=== PATIENT | male | born 1985 | race Caucasian/White ===

== ENCOUNTER 2020-03-28 21:19 | Inpatient (IN) | payer MEDICAID ==
[~2020-03-28] VITALS: Ht 182.9 cm; Wt 57.6 kg
[~2020-03-28 21:19] MED LIST: INSU100V15 SQ; INSU100V36; INSU100V36 SQ; LANTUS SUBCUT; ONDA-103 PO
[2020-03-28] MEDS ORDERED: diphenhydrAMINE 25mg capsule PO PRN (21:35)
[2020-03-28] MEDS ORDERED: mag hydrox/Alum hydrox/simeth 30ml oral suspension PO PRN (21:35)
[2020-03-28] MEDS ORDERED: ondansetron/PF 4mg/2ml inj IV PRN (21:35)
[2020-03-28] MEDS ORDERED: bisacodyl 10mg suppository rectal RC PRN (21:35)
[2020-03-28] MEDS ORDERED: glucagon, human recombinant 1mg kit SUBCUT PRN (21:35)
[2020-03-28] MEDS ORDERED: acetaminophen 325mg tablet PO PRN (21:35)
[2020-03-28] MEDS ORDERED: dextrose ORAL solution 15 GM/59 ML bottle PO PRN ×2 (21:35)
[2020-03-28] MEDS ORDERED: dextrose 50%-water 50ml dispensing syringe IV PRN ×2 (21:35)
[2020-03-29 00:55] VITALS: BP 155/112
--- NOTE | 2020-03-29 00:55 | NUR ---
Patient arrived to PCU at 0055 via gurney from [facility]. After receiving report from EMS, patient immediately became noncompliant stating that he needs to smoke a cigarette. Patient left to go outside after being informed that the facility is non-smoking and that security will be called. Security was notified and patient returned to room 5 minutes after event. Firmly restated facility's strict non-smoking policy. Able to obtain patient's vital signs: BP 155/112, HR 78, SpO2 95% on room air, respiratory rate 14, and T 97.5. EUSEBIA Finleyver aware of elevated blood pressure medication and administered Clonidine. Patient alert and oriented x4. EUSEBIA Boudreaux visited patient at bedside immediately. Patient became agitated about handing over marijuana that was kept on patient, security was called and marijuana was removed from patient. Patient refused telemetry monitoring and skin check. Informed patient about necessity to be NPO for TDC procedure in AM but became increasingly agitated. Provided apple juice & small cup of ice water with approval from EUSEBIA Boudreaux and to begin NPO right after.
[2020-03-29] MEDS ORDERED: cloNIDine 0.1 mg tablet PO ONE (01:30)
[2020-03-29] MEDS ORDERED: traZODone 50mg tablet PO ONE (01:30)
[2020-03-29] MEDS: lurasidone 60mg tablet PO SCH ×3 (01:30→20:52)
[2020-03-29] MEDS ORDERED: gabapentin 300mg capsule PO ONE (01:30)
[2020-03-29] MEDS ORDERED: nicotine 21mg patch - 24 hr TD ONE (02:15)
[2020-03-29] MEDS ORDERED: SYN0.088T PO (02:28)
[2020-03-29] MEDS ORDERED: FERR-39 PO (02:35)
[2020-03-29] MEDS ORDERED: LORazepam 2 mg/ml vial IV PRN (02:55)
[2020-03-29] MEDS ORDERED: ACET-1008 PO ×2 (03:03)
[2020-03-29] MEDS ORDERED: CLON-513 PO (03:03)
[2020-03-29] MEDS ORDERED: TRAZ-256 PO (03:03)
[2020-03-29] MEDS ORDERED: ELBA1TAB PO (03:03)
[2020-03-29] MEDS ORDERED: PROM25TA14 PO (03:03)
[2020-03-29] MEDS ORDERED: DULO60CA65 PO (03:03)
[2020-03-29] MEDS ORDERED: FURO-149 PO (03:03)
[2020-03-29] MEDS ORDERED: ENTE0.5T4 PO (03:03)
[2020-03-29] MEDS ORDERED: LURA60TA2 PO (03:03)
[2020-03-29] MEDS ORDERED: ONDA4TAB6 PO (03:03)
[2020-03-29] MEDS ORDERED: NIFE30TA95 PO (03:03)
[2020-03-29] MEDS ORDERED: INSU100V9 SQ (03:03)
[2020-03-29] MEDS ORDERED: FLO0.4C PO (03:03)
--- NOTE | 2020-03-29 03:14 | NUR ---
Patient arrived to the PCU floor at 0055 from [facility]. He was transported via EMS. He is alert and oriented. He is able to make his needs known. He is very non-compliant with care. Before he was even placed on tele or allowed vitals to be taken he said he was going to go outside to smoke. He was informed that this is a non-smoking facility and also he cannot leave this floor with his current condition because he needs to be monitored and he was offered for us to get a Nicotene patch ordered for him. He said he does not care or want that and he is going. Security called at this time however he walked past all staff members and went to smoke anyway and then came right back up. He was told that if he leaves again he will not be allowed back in unless he gets readmitted. July made aware and came up to see the patient and also educated him on this. Patient very agitated saying that this is all bullshit. He was informed that he is NPO for his TDC placement in the morning and says that he does not agree with this and thinks we just do not want to feed him. He was provided a little bit of ice chips per ok from July. He still is refusing to wear tele. Provider July is aware of this and the teletype or varitype keyboard operator is aware. He finally agreed to take the Nicotene patch so this was ordered and placed on patient. He refused for us to perform a skin check but denies having any skin issues. Patient was noted to have a large pill bottle hanging out of his pant pocket and was informed that all personal medications must be stored in the pharmacy. He said that it is not medications and it is marijuana and he was informed that this also is not allowed at the hospital. He refused to hand it over and so security was called again and eventually the patient decided to give it to security. Attempted to DART patient and obtain his health history but he is unwilling to speak to us at this time. All safety precautions in place. Will continue to monitor for changes.
[2020-03-29] MEDS ORDERED: NA P133E4 RC (03:24)
[2020-03-29] MEDS ORDERED: FAMO40TA73 PO (03:24)
[2020-03-29] MEDS ORDERED: BISA10SU60 RC (03:24)
[2020-03-29] MEDS ORDERED: CLON0.3T PO (03:24)
[2020-03-29] MEDS ORDERED: CLON0.1T PO (03:24)
[2020-03-29] MEDS ORDERED: PHO667C PO (03:24)
[2020-03-29] MEDS ORDERED: CARV25TA PO (03:24)
[2020-03-29] MEDS ORDERED: POLY119P2 PO (03:24)
[2020-03-29] MEDS ORDERED: METH5TAB2 PO (03:24)
[2020-03-29] MEDS ORDERED: METO-292 PO (03:24)
[2020-03-29] MEDS ORDERED: MAGN400O6 PO (03:24)
[2020-03-29] MEDS ORDERED: PROM12.512 RC (03:24)
[2020-03-29] MEDS ORDERED: CLON0.5T23 PO (03:24)
[2020-03-29] MEDS ORDERED: DOCU-148 PO (03:24)
[2020-03-29] MEDS ORDERED: SUCR1TAB34 PO (03:24)
[2020-03-29] MEDS ORDERED: DOCU250C96 PO (03:24)
[2020-03-29] MEDS ORDERED: GABA-530 PO (03:24)
[2020-03-29] MEDS ORDERED: magnesium hydroxide 30ml (MOM) UD suspension PO PRN (03:50)
[2020-03-29] MEDS ORDERED: non-formulary drug (Ondansetron Hcl (Zofran) 1 TAB) PO PRN (03:50)
[2020-03-29] MEDS ORDERED: ENTECAVIR PO SCH (03:50)
[2020-03-29] MEDS ORDERED: proMETHazine 25mg rectal suppository RC PRN (03:50)
[2020-03-29] MEDS ORDERED: clonazePAM 1mg tablet PO PRN ×2 (03:50)
[2020-03-29] MEDS ORDERED: non-formulary drug (Na Phos,M-B/Na Phos,Di-Ba* (Fleet's Enema*) 1 BOTTLE) RC PRN (03:50)
[2020-03-29] MEDS ORDERED: cloNIDine 0.1 mg tablet PO PRN (03:50)
[2020-03-29] MEDS ORDERED: polyethylene glycol 3350 17gm powd pack PO PRN (03:50)
[2020-03-29] MEDS ORDERED: bisacodyl 10mg suppository rectal RC PRN (03:50)
[2020-03-29] MEDS ORDERED: docusate sod 100mg capsule PO PRN (03:50)
[2020-03-29 05:33] LABS: PLATELET COUNT 200 X10'3 (140-440); RED CELL DISTRIBUTION WIDTH 17.6 % (11.5-14.5)
[2020-03-29 05:34] LABS: BASOPHILS # (AUTO) 0.1 X10'3 (0-0.2); BASOPHILS % (AUTO) 1.9 % (0-1); EOSINOPHILS # (AUTO) 0.3 X10'3 (0-0.9); EOSINOPHILS % (AUTO) 3.7 % (0-6); HEMATOCRIT 36.7 % (42.0-52.0); LYMPHOCYTES # (AUTO) 2.9 X10'3 (1.1-4.8); LYMPHOCYTES % (AUTO) 37.9 % (21-51); MEAN CORPUSCULAR HEMOGLOBIN 30.3 PG (27.0-31.0); MEAN CORPUSCULAR HGB CONC 32.7 g/dL (33.0-36.5); MEAN CORPUSCULAR VOLUME 92.5 FL (78-98); MEAN PLATELET VOLUME 7.9 FL (7.4-10.4); MONOCYTES # (AUTO) 0.7 X10'3 (0-0.9); MONOCYTES % (AUTO) 9.3 % (2-12); NEUTROPHILS # (AUTO) 3.6 X10'3 (1.8-7.7); NEUTROPHILS % (AUTO) 47.2 % (42-75); RED BLOOD COUNT 3.97 X10'6 (4.70-6.10); WHITE BLOOD COUNT 7.7 X10'3 (4.5-11.0)
[2020-03-29 05:46] LABS: ALANINE AMINOTRANSFERASE 15 U/L (12-78); ALBUMIN 2.9 G/DL (3.4-5.0); ALBUMIN/GLOBULIN RATIO 0.9 (1.1-1.5); ALKALINE PHOSPHATASE 50 IU/L (46-116); ANION GAP 4 (8-16); ASPARTATE AMINO TRANSFERASE 13 U/L (10-37); BILIRUBIN,TOTAL 0.3 MG/DL (0.1-1.0); BLOOD UREA NITROGEN 58 MG/DL (7-18); BUN/CREATININE RATIO 10.3 (5.4-32.0); CALCIUM 7.9 MG/DL (8.5-10.1); CHLORIDE 105 MMOL/L (99-107); CREATININE 5.62 MG/DL (0.60-1.10); GLUCOSE 229 MG/DL (70-104); MAGNESIUM 2.8 MG/DL (1.5-2.4); PHOSPHORUS 3.9 MG/DL (2.3-4.5); SODIUM 141 MMOL/L (135-145); TOTAL CARBON DIOXIDE 32.2 MMOL/L (24-32); eGFR 12 ML/MIN
--- NOTE | 2020-03-29 06:18 | NUR ---
Orientee documentation: I have reviewed and agree with all interventions, assessments performed and documented by Wayne ETIENNE.
--- NOTE | 2020-03-29 06:18 | NUR ---
Orientee Medication Administration: For this medication-pass time frame, all medication were reviewed, dispensed, administered and documented per hospital policy by Wayne ETIENNE.
--- NOTE | 2020-03-29 06:22 | NUR ---
Problems reprioritized. Patient report given, questions answered & plan of care reviewed with Stephanie ETIENNE.
--- NOTE | 2020-03-29 06:25 | NUR ---
Patient in room PCU 3023. I have received report from Ericka ETIENNE and Wayne ETIENNE and had the opportunity to ask questions and assume patient care.
[2020-03-29] MEDS ORDERED: MESSAGE TO PHARMACY PO ONE (06:40)
[2020-03-29 06:56] LABS: TOTAL CELLS COUNTED 100
[2020-03-29 06:57] LABS: ANISOCYTOSIS 1+; PLATELET ESTIMATE NORMAL
[2020-03-29] MEDS: metoclopramide 10mg tablet PO SCH ×4 (07:38→20:52)
[2020-03-29] MEDS: famotidine 10mg tablet PO SCH ×2 (07:38→19:14)
[2020-03-29] MEDS: carVEDilol 12.5mg tablet PO SCH ×2 (07:38→19:11)
[2020-03-29] MEDS: cloNIDine 0.1 mg tablet PO SCH ×3 (07:38→20:53)
[2020-03-29] MEDS: docusate sod 250mg capsule PO SCH ×2 (07:38→19:13)
[2020-03-29] MEDS: duloxetine 30mg CAPSULE.DR PO SCH (07:39)
[2020-03-29] MEDS: methadone 5mg tablet PO SCH ×3 (07:39→20:53)
[2020-03-29] MEDS: sucralfate 1 gm tablet PO SCH ×4 (07:39→20:52)
[2020-03-29] MEDS: ferrous sulfate 325mg tablet PO SCH (07:39)
[2020-03-29] MEDS: calcium acetate 667mg (PhosLO) capsule PO SCH ×3 (07:40→18:38)
[2020-03-29] MEDS: levoTHYROXINE 25mcg tablet PO SCH (07:40)
[2020-03-29] MEDS: gabapentin 300mg capsule PO SCH ×3 (07:40→20:52)
[2020-03-29] MEDS: furosemide 40mg tablet PO SCH (07:40)
[2020-03-29] MEDS: NIFEdipine XL 30mg tablet PO SCH (07:44)
[2020-03-29] MEDS ORDERED: heparin 1,000unit/ml 10ml vial 10 ML IV ONE (07:48)
[2020-03-29] MEDS ORDERED: heparin 1,000 units/ml 10ml inj IV ONE (07:50)
[2020-03-29] MEDS ORDERED: albumin (human) 25% 100ml IV 100 ML IV PRN (07:50)
[2020-03-29] MEDS ORDERED: heparin 1,000 units/ml 10ml inj HE ONE ×2 (07:55)
[2020-03-29] MEDS ORDERED: docusate sod 100mg capsule PO SCH (08:00)
[2020-03-29] MEDS ORDERED: proMETHazine 25mg tablet PO PRN (08:00)
[2020-03-29] MEDS ORDERED: ondansetron 4mg rapidly disintigrating tab PO PRN (08:00)
--- NOTE | 2020-03-29 09:23 | NUR ---
Patient is currently refusing much of his care. He refused vital signs, refused blood glucose check, and is upset he must be NPO. He did accept his medications. Noncompliant care plan in place. Will continue to monitor.
[2020-03-29] MEDS ORDERED: heparin 1,000unit/ml 10ml vial 10 ML ONE (10:38)
[2020-03-29] MEDS ORDERED: fentaNYL/PF 50MCG/1 ML 2ML syringe ONE (10:39)
[2020-03-29] MEDS ORDERED: midazolam 2 mg/2 ml injection ONE (10:39)
[2020-03-29] MEDS ORDERED: LIDOcaine 1%/PF 5ML 10 MG/ML VIAL ONE (10:39)
[2020-03-29] MEDS: insulin Lispro (HumaLOG) vial - multi-dose SQ SCH (13:33)
--- NOTE | 2020-03-29 16:38 | NUR ---
DM consult, patient has a1c of 8%, h/o ESRD receiving HD. Met patient at bedside during dialysis. Pt declined to answer questions re: appetite, chewing/swallowing difficulties, GI, and questions regarding DM. Gave written DM education handout and left on bedside table; discussed above with bedside RN. Addendum: 03/29/20 at [address] Amended: Links added.
[2020-03-29 18:00] VITALS: BP 185/119
--- NOTE | 2020-03-29 18:05 | NUR ---
Patient in room PCU 3023. I have received report from Stephanie ETIENNE and had the opportunity to ask questions and assume patient care.
--- NOTE | 2020-03-29 18:11 | NUR ---
Problems reprioritized. Patient report given, questions answered & plan of care reviewed with Ericka ETIENNE and Wayne ETIENNE.
--- NOTE | 2020-03-29 18:25 | NUR ---
Patient in room PCU 3023. I have received report from Nas ETIENNE and had the opportunity to ask questions and assume patient care.
--- NOTE | 2020-03-29 18:30 | NUR ---
Patient did not receive dinner tray. Ordered late tray from kitchen. Waiting to cover with insulin until patient has eaten.
--- NOTE | 2020-03-29 19:14 | NUR ---
Informed July CORONER/MEDICAL EXAMINER that patient's blood pressure is 185/119 but that he will be getting his scheduled Coreg and Clonidine coming up and so will just continue to monitor after BP meds, no other additional orders at this time. Also got accu checks changed from Q6H to ACHS.
[2020-03-29] MEDS: heparin, porcine 5000 units/ml vial SQ SCH (20:00)
[2020-03-29] MEDS ORDERED: traZODone 50mg tablet PO SCH ×2 (20:00→21:00)
--- NOTE | 2020-03-29 20:00 | NUR ---
Patient just finished eating dinner but only ate a couple bites of the beef jerad and nothing else so he did not have any carbs so sicne it is almost bedtime will just recheck blood time blood sugar and cover according to that.
[2020-03-29] MEDS ORDERED: insulin glargine (Lantus) pen - multi-dose SQ SCH (21:00)
[2020-03-29] MEDS ORDERED: tamsulosin 0.4mg capsule PO SCH (21:00)
[2020-03-29] MEDS ORDERED: GRAZOPREVIR PO SCH (21:00)
[2020-03-29] MEDS ORDERED: lurasidone 60mg tablet PO SCH (21:00)
[2020-03-29] MEDS ORDERED: ELBASVIR PO SCH (21:00)
[2020-03-29 21:03] VITALS: BP 169/97
[2020-03-29 22:00] VITALS: BP 166/112
--- NOTE | 2020-03-30 02:00 | NUR ---
Patient refused 0200 vitals.
--- NOTE | 2020-03-30 04:26 | NUR ---
Orientee documentation: I have reviewed and agree with all interventions, assessments performed and documented by Wayne ETIENNE. [employer] Medication Administration: For this medication-pass time frame, all medication were reviewed, dispensed, administered and documented per hospital policy by Wayne ETIENNE.
[2020-03-30 05:45] LABS: BASOPHILS # (AUTO) 0.2 X10'3 (0-0.2); BASOPHILS % (AUTO) 1.8 % (0-1); EOSINOPHILS # (AUTO) 0.2 X10'3 (0-0.9); EOSINOPHILS % (AUTO) 2.3 % (0-6); HEMATOCRIT 40.9 % (42.0-52.0); HEMOGLOBIN 13.4 g/dl (14.0-17.9); LYMPHOCYTES # (AUTO) 2.9 X10'3 (1.1-4.8); LYMPHOCYTES % (AUTO) 27.7 % (21-51); MEAN CORPUSCULAR HEMOGLOBIN 30.2 PG (27.0-31.0); MEAN CORPUSCULAR HGB CONC 32.8 g/dL (33.0-36.5); MEAN CORPUSCULAR VOLUME 92.1 FL (78-98); MEAN PLATELET VOLUME 7.6 FL (7.4-10.4); MONOCYTES # (AUTO) 1.1 X10'3 (0-0.9); NEUTROPHILS # (AUTO) 6.1 X10'3 (1.8-7.7); NEUTROPHILS % (AUTO) 58.2 % (42-75); PLATELET COUNT 252 X10'3 (140-440); RED BLOOD COUNT 4.44 X10'6 (4.70-6.10); RED CELL DISTRIBUTION WIDTH 17.2 % (11.5-14.5); WHITE BLOOD COUNT 10.6 X10'3 (4.5-11.0)
[2020-03-30 06:04] LABS: ALANINE AMINOTRANSFERASE 26 U/L (12-78); ALBUMIN 3.2 G/DL (3.4-5.0); ALBUMIN/GLOBULIN RATIO 0.8 (1.1-1.5); ALKALINE PHOSPHATASE 65 IU/L (46-116); ANION GAP 10 (8-16); ASPARTATE AMINO TRANSFERASE 25 U/L (10-37); BILIRUBIN,TOTAL 0.5 MG/DL (0.1-1.0); BLOOD UREA NITROGEN 37 MG/DL (7-18); BUN/CREATININE RATIO 9.7 (5.4-32.0); CALCIUM 8.3 MG/DL (8.5-10.1); CHLORIDE 101 MMOL/L (99-107); CREATININE 3.81 MG/DL (0.60-1.10); GLUCOSE 156 MG/DL (70-104); MAGNESIUM 2.5 MG/DL (1.5-2.4); PHOSPHORUS 4.1 MG/DL (2.3-4.5); POTASSIUM 3.9 MMOL/L (3.5-5.1); SODIUM 140 MMOL/L (135-145); TOTAL CARBON DIOXIDE 28.9 MMOL/L (24-32); TOTAL PROTEIN 7.1 G/DL (6.4-8.2); eGFR 18 ML/MIN
--- NOTE | 2020-03-30 06:07 | NUR ---
Problems reprioritized. Patient report given, questions answered & plan of care reviewed with Stephanie ETIENNE.
--- NOTE | 2020-03-30 06:13 | NUR ---
Patient in room PCU 3023. I have received report from Ericka ETIENNE and Wayne ETIENNE and had the opportunity to ask questions and assume patient care.
[2020-03-30 07:00] VITALS: BP 188/111
[2020-03-30] MEDS: carVEDilol 12.5mg tablet PO SCH (07:57)
[2020-03-30] MEDS: levoTHYROXINE 25mcg tablet PO SCH (07:57)
[2020-03-30] MEDS: NIFEdipine XL 30mg tablet PO SCH (07:57)
[2020-03-30] MEDS: methadone 5mg tablet PO SCH ×2 (07:58→13:31)
[2020-03-30] MEDS: gabapentin 300mg capsule PO SCH ×2 (07:58→13:31)
[2020-03-30] MEDS: furosemide 40mg tablet PO SCH (08:00)
[2020-03-30] MEDS: metoclopramide 10mg tablet PO SCH ×2 (08:00→13:31)
[2020-03-30] MEDS: cloNIDine 0.1 mg tablet PO SCH ×2 (08:00→13:31)
[2020-03-30] MEDS: docusate sod 250mg capsule PO SCH (08:00)
[2020-03-30] MEDS: ferrous sulfate 325mg tablet PO SCH (08:00)
[2020-03-30] MEDS: heparin, porcine 5000 units/ml vial SQ SCH (08:00)
[2020-03-30] MEDS: famotidine 10mg tablet PO SCH (08:00)
[2020-03-30] MEDS: duloxetine 30mg CAPSULE.DR PO SCH (08:00)
[2020-03-30] MEDS: sucralfate 1 gm tablet PO SCH ×2 (08:00→13:32)
[2020-03-30] MEDS: calcium acetate 667mg (PhosLO) capsule PO SCH (08:00)
[2020-03-30 11:00] VITALS: BP 177/90
[2020-03-30] MEDS: insulin Lispro (HumaLOG) vial - multi-dose SQ SCH (13:30)
[2020-03-30] MEDS ORDERED: calcium acetate 667mg (PhosLO) capsule PO SCH (13:32)
--- NOTE | 2020-03-30 14:46 | NUR ---
Patient stable for discharge per MD order. All discharge information and education reviewed with patient before signing necessary paperwork. IV discontinued with catheter in tact, monitoring and evaluation advisor removed, patient belongings packed up and sent with patient. No new Rx. Patient left with transport service back to [place].
== END 2020-03-30 14:15 | DRG 206 ==
LOC: PCU 3S 21:33 → UNDOADMIN 03-29 00:56 → PCU 3S 03-29 00:56
PROVIDERS: ADMIT Internal Medicine Critical Care Medicine; ATTEND Internal Medicine Critical Care Medicine
PROC: 0JH63XZ Insertion of Tunneled Vascular Access Device into Chest Subcutaneous Tissue and Fascia, Percutaneous Approach (ICD-10-PCS; principal; 2020-03-29)
PROC: 02HV33Z Insertion of Infusion Device into Superior Vena Cava, Percutaneous Approach (ICD-10-PCS; 2020-03-29)
PROC: B548ZZA Ultrasonography of Superior Vena Cava, Guidance (ICD-10-PCS; 2020-03-29)
PROC: 5A1D70Z Performance of Urinary Filtration, Intermittent, Less than 6 Hours Per Day (ICD-10-PCS; 2020-03-29)
DX: T82.818A Embolism due to vascular prosthetic devices, implants and grafts, initial encounter (principal); E10.22 Type 1 diabetes mellitus with diabetic chronic kidney disease; F12.90 Cannabis use, unspecified, uncomplicated; F25.0 Schizoaffective disorder, bipolar type; G89.4 Chronic pain syndrome; I12.0 Hypertensive chronic kidney disease with stage 5 chronic kidney disease or end stage renal disease; B19.20 Unspecified viral hepatitis C without hepatic coma; N18.6 End stage renal disease; E10.649 Type 1 diabetes mellitus with hypoglycemia without coma; Y83.2 Surgical operation with anastomosis, bypass or graft as the cause of abnormal reaction of the patient, or of later complication, without mention of misadventure at the time of the procedure; Y92.89 Other specified places as the place of occurrence of the external cause; Z79.4 Long term (current) use of insulin; Z79.899 Other long term (current) drug therapy; Z87.11 Personal history of peptic ulcer disease; Z99.2 Dependence on renal dialysis
CPT/HCPCS: 36415; 36558; 71045; 76937; 77001; 80053; 82948; 83036; 83735; 84100; 84443; 85007; 85025; 87081; 99152; 99153; A9270; C1769; C1894; G0378; J1644; J1815; J2250; J3010; J8597

== ENCOUNTER 2020-08-28 16:29 | Emergency (ER) | payer MEDICAID ==
[~2020-08-28] VITALS: Ht 177.8 cm; Wt 63.0 kg
[~2020-08-28 16:29] MED LIST changes: +ACET-1008 PO; +BISA10SU60 RC; +CARV25TA PO; +CLON-513 PO; +CLON0.1T PO; +CLON0.3T PO; +CLON0.5T23 PO; +DOCU250C96 PO; +DULO60CA65 PO; +ELBA1TAB PO; +ENTE0.5T4 PO; +FAMO40TA73 PO; +FERR-39 PO; +FLO0.4C PO; +FURO-149 PO; +GABA-530 PO; -INSU100V36 SQ; +INSU100V9 SQ; -LANTUS SUBCUT; +LURA60TA PO; +MAGN400O6 PO; +METH5TAB2 PO; +METO-292 PO; +NA P133E4 RC; +NIFE30TA95 PO; +PHO667C PO; +POLY119P2 PO; +PROM12.512 RC; +SUCR1TAB34 PO; +SYN0.088T PO; +TRAZ-256 PO
[2020-08-28 17:00] LABS: BASOPHILS % (AUTO) 0.4 % (0-1); EOSINOPHILS % (AUTO) 0.6 % (0-6); HEMATOCRIT 31.3 % (42.0-52.0); HEMOGLOBIN 10.6 g/dl (14.0-17.9); LYMPHOCYTES # (AUTO) 1.4 X10'3 (1.1-4.8); LYMPHOCYTES % (AUTO) 20.2 % (21-51); MEAN CORPUSCULAR HEMOGLOBIN 30.9 PG (27.0-31.0); MEAN CORPUSCULAR HGB CONC 33.8 g/dL (33.0-36.5); MEAN CORPUSCULAR VOLUME 91.4 FL (78-98); MEAN PLATELET VOLUME 7.5 FL (7.4-10.4); MONOCYTES # (AUTO) 0.3 X10'3 (0-0.9); MONOCYTES % (AUTO) 4.3 % (2-12); NEUTROPHILS % (AUTO) 74.5 % (42-75); PLATELET COUNT 195 X10'3 (140-440); RED BLOOD COUNT 3.43 X10'6 (4.70-6.10); RED CELL DISTRIBUTION WIDTH 13.7 % (11.5-14.5); WHITE BLOOD COUNT 6.7 X10'3 (4.5-11.0)
[2020-08-28 17:15] LABS: ALANINE AMINOTRANSFERASE 13 U/L (12-78); ALBUMIN 3.1 G/DL (3.4-5.0); ALBUMIN/GLOBULIN RATIO 0.8 (1.1-1.5); ALKALINE PHOSPHATASE 64 IU/L (46-116); ANION GAP 13 (8-16); ASPARTATE AMINO TRANSFERASE 14 U/L (10-37); BILIRUBIN,TOTAL 0.5 MG/DL (0.1-1.0); BLOOD UREA NITROGEN 32 MG/DL (7-18); BUN/CREATININE RATIO 8.7 (5.4-32.0); CALCIUM 8.5 MG/DL (8.5-10.1); CHLORIDE 98 MMOL/L (99-107); CREATININE 3.66 MG/DL (0.60-1.10); GLUCOSE 215 MG/DL (70-104); LIPASE < 50 U/L (73-393); MAGNESIUM 1.9 MG/DL (1.5-2.4); POTASSIUM 3.8 MMOL/L (3.5-5.1); SODIUM 138 MMOL/L (135-145); TOTAL CARBON DIOXIDE 27.4 MMOL/L (24-32); eGFR 19 ML/MIN
--- NOTE | 2020-08-28 17:42 | NUR ---
per pa good, patient straight cathed
--- NOTE | 2020-08-28 17:43 | NUR ---
only a few mls of urine obtained.
--- NOTE | 2020-08-28 17:44 | NUR ---
PATIENT HAD HD TODAY
--- NOTE | 2020-08-28 17:45 | NUR ---
MYRTLE [place] MOTHER IN [place] [id number] [phone] PER MOTHER, BEENA JUST CAME HOME 2 DAYS AGO AND WAS LIVING AT [facility] PER MOM, PATIENT HAS NOT TAKEN ANY OF HIS MEDS TODAY DUE TO NAUSEA AND VOMITING
[2020-08-28 18:04] LABS: CLARITY,URINE CLEAR (Clear); COLOR,URINE YELLOW (Yellow); GLUCOSE, URINE 250 mg/dl (Neg); KETONES,URINE TRACE mg/dl (Neg); LEUKOCYTE ESTERASE ,URINE NEGATIVE (Neg); NITRITES, URINE NEGATIVE (Neg); OCCULT BLOOD,URINE SMALL (Neg); PH,URINE 7.5 (4.8-8.0); PROTEIN,URINE >=300 mg/dl (Neg); UROBILINOGEN,URINE 0.2 E.U/dL (0.2-1.0)
[2020-08-28 18:10] LABS: UA COLLECTION TYPE STRAIGHT CATH
[2020-08-28 18:11] LABS: BACTERIA,URINE NONE SEEN /HPF (Neg); HYALINE CASTS 0-3 /LPF (NEGATIVE); MUCUS STRANDS FEW /LPF (Neg); RBC,URINE 0-2 /HPF (0-2); SQUAMOUS EPITHELIAL CELL,UR FEW /LPF (FEW); WBC,URINE 0-4 /HPF (0-4)
[2020-08-28 18:13] LABS: URINE AMPHETAMINE SCREEN NEGATIVE (Neg); URINE BARBITUATE SCREEN NEGATIVE (Neg); URINE BENZODIAZEPINES SCREEN NEGATIVE (Neg); URINE CANNABINOID SCREEN POSITIVE (Neg); URINE COCAINE SCREEN NEGATIVE (Neg); URINE METHADONE SCREEN POSITIVE (Neg); URINE OPIATE SCREEN NEGATIVE (Neg); URINE PHENCYCLIDINE SCREEN NEGATIVE (Neg)
--- NOTE | 2020-08-28 18:22 | NUR ---
REPORT OT TIKA ETIENNE
[2020-08-28 19:36] VITALS: BP 160/100
--- NOTE | 2020-08-28 20:06 | NUR ---
Spoke with Sharona (mother) who lives in [place].Per mother, pt. lives with her in [place]. She is unable to provide a ride back home tonight and she has spoke with Noe who takes pt. to his dialysis appts. Per Sharona, Noe can only provide a ride back home if pt was admitted to acute care and then discharge.
--- NOTE | 2020-08-28 20:24 | NUR ---
Per mother of pt, she will call [facility] to arrange transportation back to [place].
--- NOTE | 2020-08-28 21:31 | NUR ---
Pt. provided transportation to [place]. Mother arranged loging at this place for the noc. Pt. provided with food upon discharge.
== END 2020-08-28 21:32 | disposition home or self-care (01) ==
LOC: ER 16:29
DX: R10.84 Generalized abdominal pain (principal); G89.29 Other chronic pain; E11.9 Type 2 diabetes mellitus without complications; F32.9 Major depressive disorder, single episode, unspecified; R51.9 Headache, unspecified; F41.9 Anxiety disorder, unspecified; F20.9 Schizophrenia, unspecified; F12.90 Cannabis use, unspecified, uncomplicated; F15.90 Other stimulant use, unspecified, uncomplicated; Z87.442 Personal history of urinary calculi; Z86.19 Personal history of other infectious and parasitic diseases; Z56.0 Unemployment, unspecified; Z79.899 Other long term (current) drug therapy; Z99.2 Dependence on renal dialysis
CPT/HCPCS: 36415; 70450; 74176; 80053; 80305; 81001; 83605; 83690; 83735; 85025; 99285

== ENCOUNTER 2020-08-29 08:05 | Inpatient (IN) | payer MEDICAID ==
[~2020-08-29] VITALS: Ht 182.9 cm; Wt 63.0 kg
[2020-08-29] MEDS ORDERED: normal saline 1000ML IV soln IVB ONE (08:50)
[2020-08-29] MEDS ORDERED: fentaNYL/PF 50MCG/1 ML 2ML syringe IV ONE (09:15)
[2020-08-29] MEDS ORDERED: ondansetron/PF 4mg/2ml inj IV ONE (09:15)
[2020-08-29 10:01] LABS: CLARITY,URINE SLIGHTLY CLOUDY (Clear); COLOR,URINE YELLOW (Yellow); GLUCOSE, URINE >=1000 mg/dl (Neg); KETONES,URINE 40 mg/dl (Neg); LEUKOCYTE ESTERASE ,URINE NEGATIVE (Neg); NITRITES, URINE NEGATIVE (Neg); OCCULT BLOOD,URINE MODERATE (Neg); PROTEIN,URINE >=300 mg/dl (Neg); UROBILINOGEN,URINE 0.2 E.U/dL (0.2-1.0)
[2020-08-29 10:06] LABS: UA COLLECTION TYPE CLN CATCH MIDSTREAM
[2020-08-29 10:10] LABS: COARSE GRANULAR CAST 0-3 /LPF (NEGATIVE); SQUAMOUS EPITHELIAL CELL,UR FEW /LPF (FEW)
[2020-08-29 10:12] LABS: BACTERIA,URINE FEW /HPF (Neg); WBC,URINE 0-4 /HPF (0-4)
[2020-08-29] MEDS ORDERED: morphine 4 MG/ML inj SYRINge IV ONE (10:15)
--- NOTE | 2020-08-29 10:30 | NUR ---
Pt still c/o 810 abdominal pain. Pt medicated as ordered and given warm blanket for comfort.
--- NOTE | 2020-08-29 10:42 | NUR ---
Pt removed the IV tubing and stopped IV pump. Patient out to the nurses station requesting to go outside and smoke. Explained to him that that is not an option and to please use his call light. Pt redirected back to the gurney and IV fluids infusing as ordered.
[2020-08-29 11:13] LABS: BASOPHILS % (AUTO) 0.4 % (0-1); EOSINOPHILS % (AUTO) 0 % (0-6); LYMPHOCYTES % (AUTO) 7.5 % (21-51); MEAN PLATELET VOLUME 8.4 FL (7.4-10.4); MONOCYTES # (AUTO) 1.2 X10'3 (0-0.9); MONOCYTES % (AUTO) 8.6 % (2-12); NEUTROPHILS # (AUTO) 11.2 X10'3 (1.8-7.7); NEUTROPHILS % (AUTO) 83.5 % (42-75); PLATELET COUNT 222 X10'3 (140-440); RED CELL DISTRIBUTION WIDTH 14.4 % (11.5-14.5); WHITE BLOOD COUNT 13.5 X10'3 (4.5-11.0)
[2020-08-29 11:24] LABS: ALANINE AMINOTRANSFERASE 17 U/L (12-78); ALBUMIN 3.5 G/DL (3.4-5.0); ALKALINE PHOSPHATASE 69 IU/L (46-116); ANION GAP 28 (8-16); ASPARTATE AMINO TRANSFERASE 25 U/L (10-37); BILIRUBIN,TOTAL 0.7 MG/DL (0.1-1.0); BLOOD UREA NITROGEN 65 MG/DL (7-18); BUN/CREATININE RATIO 10.7 (5.4-32.0); CALCIUM 8.3 MG/DL (8.5-10.1); CHLORIDE 89 MMOL/L (99-107); CREATININE 6.09 MG/DL (0.60-1.10); LIPASE < 50 U/L (73-393); POTASSIUM 4.4 MMOL/L (3.5-5.1); SODIUM 134 MMOL/L (135-145); TOTAL CARBON DIOXIDE 17.4 MMOL/L (24-32); TOTAL PROTEIN 7.1 G/DL (6.4-8.2); eGFR 11 ML/MIN
[2020-08-29 11:32] LABS: HEMATOCRIT 33.8 % (42.0-52.0); HEMOGLOBIN 11.3 g/dl (14.0-17.9); MEAN CORPUSCULAR VOLUME 93.8 FL (78-98)
[2020-08-29 11:33] LABS: MEAN CORPUSCULAR HEMOGLOBIN 31.4 PG (27.0-31.0); MEAN CORPUSCULAR HGB CONC 33.5 g/dL (33.0-36.5)
[2020-08-29 11:40] LABS: GLUCOSE 952 MG/DL (70-104)
--- NOTE | 2020-08-29 11:42 | NUR ---
Pt ambulatory to restroom.
[2020-08-29] MEDS ORDERED: potassium Cl 20 mEq SR tablet PO PRN ×6 (11:45→13:50)
[2020-08-29] MEDS ORDERED: sodium bicarbonate (8.4%) inj. 50 MEQ in dextrose 5% water 500ml 250 ML IV PRN ×2 (11:45→13:50)
[2020-08-29] MEDS ORDERED: Neutra Phos packet PO PRN ×2 (11:45→13:50)
[2020-08-29] MEDS ORDERED: sodium phosphate inj. 30 MMOL in dextrose 5%-water 250 ML IV PRN ×2 (11:45→13:50)
[2020-08-29] MEDS ORDERED: potassium Cl 40MEQ/1/2NS 520ml 520 ML IV PRN ×6 (11:45→13:50)
[2020-08-29] MEDS ORDERED: sodium phosphate inj. 15 MMOL in dextrose 5%-water 250 ML IV PRN ×2 (11:45→13:50)
[2020-08-29] MEDS ORDERED: Insulin Reg/NS 100units/100mL 100 ML IV SCH ×3 (11:45→23:10)
[2020-08-29] MEDS ORDERED: sodium bicarbonate (8.4%) inj. 100 MEQ in dextrose 5% water 500ml 500 ML IV PRN ×2 (11:45→13:50)
[2020-08-29] MEDS ORDERED: potassium CL 20mEq in D5-1/2NS 1,000 ML IV PRN ×2 (11:45→13:50)
[2020-08-29] MEDS ORDERED: proCHLORperazine 10 MG/2 ml inj IV ONE (11:50)
[2020-08-29] MEDS: insulin regular, human U-100 3ml vial - multi-dose IV PRN ×4 (12:03→17:22)
[2020-08-29] MEDS: normal saline 1000ml 1,000 ML IV SCH ×4 (12:20→23:17)
[2020-08-29 12:32] LABS: PHOSPHORUS 9.5 MG/DL (2.3-4.5)
--- NOTE | 2020-08-29 12:57 | NUR ---
Discussed pt's restlessness and inability to relax w/ edmd Calderon; new order received for Ativan 1mg.
[2020-08-29] MEDS ORDERED: LORazepam 2 mg/ml vial IV ONE (13:00)
[2020-08-29 13:17] LABS: ABG BASE EXCESS -3.7 mmol/L (-2.0-2.0); ABG HCO3 20.3 mmol/L (22.0-26.0); ABG OXYGEN SATURATION 91.2 % (94-97); ABG PCO2 (T) 32.9 mmHg (35.0-48.0); ABG PO2 (T) 58.9 mmHg (75.0-100.0); FCOHb 0.5 % (0.0-3.9); FMetHb 0.1 % (0.0-1.5); FO2Hb 90.7 % (94-97); TOTAL HEMOGLOBIN 10.6 G/dl (14.0-18.0)
--- NOTE | 2020-08-29 13:42 | NUR ---
Provider Valeriano at bedside for eval and admission of patient.
[2020-08-29] MEDS ORDERED: acetaminophen 325mg tablet PO PRN (13:45)
[2020-08-29] MEDS ORDERED: acetaminophen 650mg rectal suppository RC PRN (13:45)
[2020-08-29] MEDS ORDERED: insulin regular, human U-100 3ml vial - multi-dose IV PRN ×2 (13:50)
[2020-08-29] MEDS ORDERED: normal saline 1000ml 1,000 ML IV SCH ×3 (13:50)
--- NOTE | 2020-08-29 14:50 | NUR ---
Pt resting on gurney with eyes closed. RR even and unlabored. Will continue to monitor.
--- NOTE | 2020-08-29 15:02 | NUR ---
Patient in room ED 5. I have received report from Yary ETIENNE and had the opportunity to ask questions and assume patient care.
[2020-08-29 15:15] VITALS: BP 172/116
[2020-08-29] MEDS: hydrALAZINE 20mg/ml inj. IV PRN (16:07)
[2020-08-29] MEDS: ondansetron/PF 4mg/2ml inj IV PRN (16:07)
[2020-08-29 16:19] LABS: ALBUMIN 3.4 G/DL (3.4-5.0); ANION GAP 15 (8-16); BLOOD UREA NITROGEN 70 MG/DL (7-18); CALCIUM 8.2 MG/DL (8.5-10.1); CHLORIDE 96 MMOL/L (99-107); CREATININE 6.36 MG/DL (0.60-1.10); PHOSPHORUS 6.5 MG/DL (2.3-4.5); POTASSIUM 3.3 MMOL/L (3.5-5.1); SODIUM 138 MMOL/L (135-145); TOTAL CARBON DIOXIDE 27.1 MMOL/L (24-32); eGFR 10 ML/MIN
[2020-08-29 16:21] LABS: GLUCOSE 685 MG/DL (70-104)
--- NOTE | 2020-08-29 18:11 | NUR ---
Problems reprioritized. Patient report given, questions answered & plan of care reviewed with Brisa ETIENNE.
[2020-08-29 18:50] VITALS: BP 180/110
[2020-08-29] MEDS ORDERED: furosemide 40mg tablet PO ONE (19:55)
[2020-08-29] MEDS ORDERED: hydrALAZINE 25 MG tablet PO ONE (19:55)
[2020-08-29] MEDS ORDERED: clonazePAM 0.5mg tablet PO ONE (19:55)
[2020-08-29] MEDS ORDERED: K and/or MAG REPLACEMENT MC SCH ×3 (20:00)
[2020-08-29 20:30] LABS: ALBUMIN 3.1 G/DL (3.4-5.0); ANION GAP 12 (8-16); BLOOD UREA NITROGEN 72 MG/DL (7-18); BUN/CREATININE RATIO 11.5 (5.4-32.0); CHLORIDE 102 MMOL/L (99-107); CREATININE 6.25 MG/DL (0.60-1.10); GLUCOSE 300 MG/DL (70-104); PHOSPHORUS 5.1 MG/DL (2.3-4.5); POTASSIUM 3.1 MMOL/L (3.5-5.1); SODIUM 144 MMOL/L (135-145); TOTAL CARBON DIOXIDE 30.2 MMOL/L (24-32); eGFR 10 ML/MIN
[2020-08-29] MEDS ORDERED: carvedilol 6.25mg tablet PO ONE (21:00)
--- NOTE | 2020-08-29 21:50 | NUR ---
meds given as pt was agreeable to taking them now
[2020-08-29 21:58] LABS: ANION GAP 8 (8-16); BLOOD UREA NITROGEN 71 MG/DL (7-18); BUN/CREATININE RATIO 11.7 (5.4-32.0); CHLORIDE 104 MMOL/L (99-107); CREATININE 6.08 MG/DL (0.60-1.10); GLUCOSE 170 MG/DL (70-104); POTASSIUM 3.6 MMOL/L (3.5-5.1); SODIUM 143 MMOL/L (135-145); TOTAL CARBON DIOXIDE 31.2 MMOL/L (24-32); eGFR 11 ML/MIN
[2020-08-29] MEDS ORDERED: traZODone 50mg tablet PO ONE (22:00)
[2020-08-29 23:00] VITALS: BP 166/108
[2020-08-29] MEDS ORDERED: dextrose 50%-water 50ml dispensing syringe IV ONE (23:00)
--- NOTE | 2020-08-29 23:06 | NUR ---
blood sugar was 47. 50 ml dextrose given protocol.
--- NOTE | 2020-08-29 23:15 | NUR ---
orders to stop DKA protocol and change to standard insulin gtt with d5 1/2 NS with 20K @150ml/hr. Start insulin gtt when blood sugar is back over 140
[2020-08-30] MEDS ORDERED: glucagon, human recombinant 1mg kit SUBCUT PRN ×2 (00:05→07:35)
[2020-08-30] MEDS ORDERED: dextrose 50%-water 50ml dispensing syringe IV PRN ×4 (00:05→09:30)
[2020-08-30] MEDS ORDERED: dextrose ORAL solution 15 GM/59 ML bottle PO PRN ×4 (00:05→07:35)
[2020-08-30] MEDS: dextrose 50%-water 50ml dispensing syringe IV PRN ×2 (01:03→17:36)
[2020-08-30 03:00] VITALS: BP 171/109
[2020-08-30] MEDS: normal saline 1000ml 1,000 ML IV SCH (03:34)
--- NOTE | 2020-08-30 04:36 | NUR ---
PIV in right hand occluded. Several attempts to start new PIV, finally SIDE PIECE COVERER placed external jugular PIV. IVF restarted. was notified initially of lost IV access.
[2020-08-30 04:49] LABS: ALBUMIN 2.8 G/DL (3.4-5.0); ANION GAP 9 (8-16); CHLORIDE 105 MMOL/L (99-107); CREATININE 6.16 MG/DL (0.60-1.10); GLUCOSE 115 MG/DL (70-104); PHOSPHORUS 5.9 MG/DL (2.3-4.5); SODIUM 144 MMOL/L (135-145); TOTAL CARBON DIOXIDE 29.9 MMOL/L (24-32); eGFR 11 ML/MIN
[2020-08-30 04:53] LABS: BLOOD UREA NITROGEN 71 MG/DL (7-18); BUN/CREATININE RATIO 11.5 (5.4-32.0)
[2020-08-30 05:09] LABS: BASOPHILS # (AUTO) 0.1 X10'3 (0-0.2); BASOPHILS % (AUTO) 0.3 % (0-1); EOSINOPHILS % (AUTO) 0.1 % (0-6); HEMATOCRIT 29.2 % (42.0-52.0); HEMOGLOBIN 9.7 g/dl (14.0-17.9); LYMPHOCYTES # (AUTO) 1.9 X10'3 (1.1-4.8); LYMPHOCYTES % (AUTO) 10.2 % (21-51); MEAN CORPUSCULAR HEMOGLOBIN 30.7 PG (27.0-31.0); MEAN CORPUSCULAR HGB CONC 33.2 g/dL (33.0-36.5); MEAN CORPUSCULAR VOLUME 92.4 FL (78-98); MONOCYTES % (AUTO) 10.5 % (2-12); NEUTROPHILS % (AUTO) 78.9 % (42-75); PLATELET COUNT 190 X10'3 (140-440); RED BLOOD COUNT 3.16 X10'6 (4.70-6.10)
[2020-08-30] MEDS: hydrALAZINE 20mg/ml inj. IV PRN ×2 (05:25→11:24)
--- NOTE | 2020-08-30 05:30 | NUR ---
notified MD Boudreaux of blood glucose of 216 after restarting IV fluid with new IV. Orders to SL patient and DC IVF. Diet ordered. IV dressing reinforced.
--- NOTE | 2020-08-30 05:33 | NUR ---
PRN meds given for SBP 190s
--- NOTE | 2020-08-30 06:12 | NUR ---
Problems reprioritized. Patient report given, questions answered & plan of care reviewed with Katelynn ETIENNE.
--- NOTE | 2020-08-30 06:27 | NUR ---
Patient in room PCU 3011. I have received report from Brisa Dickinson and had the opportunity to ask questions and assume patient care. Pt sleeping in no acute distress
[2020-08-30 07:00] VITALS: BP 198/119
[2020-08-30 07:04] LABS: ALBUMIN 2.9 G/DL (3.4-5.0); ANION GAP 14 (8-16); BLOOD UREA NITROGEN 69 MG/DL (7-18); BUN/CREATININE RATIO 11.2 (5.4-32.0); CALCIUM 7.6 MG/DL (8.5-10.1); CHLORIDE 101 MMOL/L (99-107); CREATININE 6.16 MG/DL (0.60-1.10); GLUCOSE 294 MG/DL (70-104); POTASSIUM 4.2 MMOL/L (3.5-5.1); SODIUM 143 MMOL/L (135-145); TOTAL CARBON DIOXIDE 27.7 MMOL/L (24-32); eGFR 11 ML/MIN
[2020-08-30] MEDS ORDERED: insulin Lispro (HumaLOG) vial - multi-dose SQ SCH ×2 (07:35→09:30)
[2020-08-30] MEDS ORDERED: MESSAGE TO PHARMACY PO ONE (07:35)
[2020-08-30] MEDS: ondansetron/PF 4mg/2ml inj IV PRN ×2 (07:49→14:17)
[2020-08-30 08:04] LABS: HEMOGLOBIN A1C 9.1 % (4.5-6.2)
[2020-08-30] MEDS ORDERED: epoetin 20,000 units/ml inj IV ONE (09:35)
[2020-08-30] MEDS ORDERED: heparin 1,000 units/ml 10ml inj IV ONE (09:35)
[2020-08-30] MEDS ORDERED: heparin 1,000 units/ml 10ml inj HE ONE (09:40)
[2020-08-30] MEDS: Insulin Reg/NS 100units/100mL 100 ML IV SCH ×2 (09:52→13:30)
[2020-08-30] MEDS: metoclopramide 10mg tablet PO PRN ×2 (10:06→16:48)
[2020-08-30] MEDS: traMADol 50MG tablet PO PRN ×2 (10:06→18:57)
[2020-08-30 11:00] VITALS: BP 188/124
--- NOTE | 2020-08-30 12:15 | NUR ---
DM Consult: A1C 9.1. Pt admit DX DKA, ESRD on HD, and hypertensive crisis per EMR. Hx meth abuse and T1DM forced to stay in hotel following HD yesterday without insulin, N/V FIRE INVESTIGATOR, and Glu 952 on admit. Glu down to 66 from 952 now back up to 487 and increasing w/ insulin drip restarted this AM after stopping at 1AM per MD note. Advanced to carb controlled/renal diet w/ 0% PO initial meals. Noted pt takes Lantus 7 units AM/4 units HS, sliding scaled humalog, and myriad bowel care meds including reglan at home per EMR. Possibly seeking narcotics and less concerned w/ Glu per MD note. Will monitor for PO acceptance, tolerance, and additional protein needs on HD. Pt would benefit from DM ed once more appropriate prior to discharge. Rec: 1. continue carb controlled/renal diet 2. monitor for ONS needs; consider vanilla ensure high protein if needed since lowest CHO/electrolyte ONS 3. Phos binder w/ meals on HD per MD 4. routine bowel care; promotility agent per MD 5. scaled wt this admit; wts w/ HD 6. DM ed once appropriate prior to discharge Addendum: 08/30/20 at [address] Amended: Links added.
[2020-08-30 15:00] VITALS: BP 159/97
[2020-08-30] MEDS ORDERED: PHO667C PO (15:23)
[2020-08-30 18:00] VITALS: BP_SYST 148; BP_SYST 168; BP_DIAS 102; BP_DIAS 60
--- NOTE | 2020-08-30 18:13 | NUR ---
Problems reprioritized. Patient report given, questions answered & plan of care reviewed with Heather RN. Patient alert and appropriate at this time.
--- NOTE | 2020-08-30 18:15 | NUR ---
Patient in room PCU 3011. I have received report from MARY ETIENNE and had the opportunity to ask questions and assume patient care.
[2020-08-30] MEDS: insulin Lispro (HumaLOG) vial - multi-dose SQ SCH ×2 (19:46→20:04)
[2020-08-30] MEDS: gabapentin 300mg capsule PO SCH (20:54)
[2020-08-30] MEDS: carVEDilol 12.5mg tablet PO SCH (20:54)
[2020-08-30] MEDS: cloNIDine 0.1 mg tablet PO SCH (20:56)
[2020-08-30] MEDS ORDERED: insulin glargine (Lantus) pen - multi-dose SQ SCH (21:00)
[2020-08-30] MEDS ORDERED: tamsulosin 0.4mg capsule PO SCH (21:00)
[2020-08-30 22:00] VITALS: BP 145/90
[2020-08-30] MEDS: traZODone 50mg tablet PO ONE ×2 (22:05→22:09)
--- NOTE | 2020-08-30 22:43 | NUR ---
PT REQUESTED TRAZADONE SO Celestine PROGRAM PROJECT MANAGER ORDERED IT. HE FELL ASLEEP BEFORE TAKING PILLS. MED NOT GIVEN AT THIS TIME.
[2020-08-31] MEDS: insulin Lispro (HumaLOG) vial - multi-dose SQ SCH ×2 (01:27→02:16)
[2020-08-31 03:04] VITALS: BP 157/100
--- NOTE | 2020-08-31 03:39 | NUR ---
PT REQUESTED BACK RUB, LOTION APPLIED TO BACK USING THERAPEUTIC TOUCH. PT APPEARED TO RELAX A LITTLE AND FALL ASLEEP.
--- NOTE | 2020-08-31 06:06 | NUR ---
Problems reprioritized. Patient report given, questions answered & plan of care reviewed with Adelfo ETIENNE.
--- NOTE | 2020-08-31 06:46 | NUR ---
Patient in room PCU 3011. I have received report from Brisa ETIENNE and had the opportunity to ask questions and assume patient care. PT stable at this time. BG 106 insulin gtt stopped
[2020-08-31 07:00] VITALS: BP 130/93
[2020-08-31 07:06] LABS: BASOPHILS % (AUTO) 0.3 % (0-1); EOSINOPHILS % (AUTO) 0.1 % (0-6); HEMATOCRIT 26.5 % (42.0-52.0); HEMOGLOBIN 8.8 g/dl (14.0-17.9); LYMPHOCYTES % (AUTO) 15.1 % (21-51); MEAN CORPUSCULAR HGB CONC 33.4 g/dL (33.0-36.5); MEAN CORPUSCULAR VOLUME 92.9 FL (78-98); MEAN PLATELET VOLUME 7.9 FL (7.4-10.4); MONOCYTES # (AUTO) 1.4 X10'3 (0-0.9); MONOCYTES % (AUTO) 10.1 % (2-12); NEUTROPHILS % (AUTO) 74.4 % (42-75); PLATELET COUNT 151 X10'3 (140-440); RED BLOOD COUNT 2.85 X10'6 (4.70-6.10); RED CELL DISTRIBUTION WIDTH 13.9 % (11.5-14.5); WHITE BLOOD COUNT 13.4 X10'3 (4.5-11.0)
[2020-08-31 07:55] LABS: ALBUMIN 2.5 G/DL (3.4-5.0); ANION GAP 12 (8-16); BLOOD UREA NITROGEN 82 MG/DL (7-18); BUN/CREATININE RATIO 12.5 (5.4-32.0); CHLORIDE 99 MMOL/L (99-107); CREATININE 6.54 MG/DL (0.60-1.10); GLUCOSE 116 MG/DL (70-104); MAGNESIUM 2.1 MG/DL (1.5-2.4); PHOSPHORUS 7.3 MG/DL (2.3-4.5); POTASSIUM 3.5 MMOL/L (3.5-5.1); SODIUM 138 MMOL/L (135-145); TOTAL CARBON DIOXIDE 27.4 MMOL/L (24-32); eGFR 10 ML/MIN
[2020-08-31] MEDS: cloNIDine 0.1 mg tablet PO SCH (07:57)
[2020-08-31] MEDS: carVEDilol 12.5mg tablet PO SCH (07:58)
[2020-08-31] MEDS: gabapentin 300mg capsule PO SCH (07:58)
[2020-08-31] MEDS ORDERED: epoetin 20,000 units/ml inj IV ONE (08:00)
[2020-08-31] MEDS ORDERED: calcium acetate 667mg (PhosLO) capsule PO SCH (08:00)
[2020-08-31] MEDS ORDERED: levoTHYROXINE 25mcg tablet PO SCH (08:00)
[2020-08-31] MEDS ORDERED: heparin 1,000 units/ml 10ml inj HE ONE ×2 (08:00)
[2020-08-31] MEDS ORDERED: ferrous sulfate 325mg tablet PO SCH (08:00)
[2020-08-31] MEDS ORDERED: furosemide 40mg tablet PO SCH (08:00)
[2020-08-31] MEDS: ondansetron/PF 4mg/2ml inj IV PRN (08:00)
[2020-08-31] MEDS: traMADol 50MG tablet PO PRN (08:00)
[2020-08-31] MEDS ORDERED: NIFEdipine XL 30mg tablet PO SCH (08:00)
[2020-08-31] MEDS: dextrose 50%-water 50ml dispensing syringe IV PRN ×2 (08:33→10:59)
--- NOTE | 2020-08-31 10:09 | NUR ---
ULTRASOUND GUIDED PIV PLACEMENT DUE TO LEFT IJ INFILTRATION. UPON ARRIVAL TO ROOM TDC OBSERVED OPEN TO AIR. TDC CLEANED WITH CHLOROHEXIDINE, AND STERILE CENTRAL LINE DRESSING PLACED OVER SITE. RIGO PICC LOWELL
[2020-08-31 11:00] VITALS: BP 95/63
[2020-08-31] MEDS ORDERED: PANT-47 PO (11:18)
--- NOTE | 2020-08-31 13:30 | NUR ---
Patient d/c to home [facility] at [facility]. Patient refused to wait for dialysis or for his ride to arrive . He stated he would stay in front of the hospital so he could smoke cigarettes and wait for his ride there. RX was printed and handed to him with his dc paperwork. DC instructions were reviewed with the patient and he verbalized understanding. Warning s/s of hypo/hyperglycemia were reviewed with the patient and verbalized understanding. Patient was alert, oriented and appropriate at time of discharge. Patient ate turkey sandwich before he left.
--- NOTE | 2020-08-31 14:50 | NUR ---
F/u: Pt discharged prior to RD visit this admit; written DM ed w/ RD contact information mailed to pt home address provided in EMR. Addendum: 08/31/20 at [address] Amended: Links added.
[2020-08-31] MEDS ORDERED: traZODone 50mg tablet PO SCH (21:00)
--- NOTE | 2020-09-01 15:02 | NUR ---
CASE MANAGEMENT DISCHARGE FOLLOW UP: Attempt to contact via telephone, straight to voicemail which is not set up. Unable to contact patient.
== END 2020-08-31 13:05 | disposition home or self-care (01) | DRG 420 ==
LOC: ER 08:06 → ED HOLD 13:43 → EDBEDREQ 14:49 → PCU 3S 15:13
PROVIDERS: ADMIT Internal Medicine Critical Care Medicine; ATTEND Internal Medicine Critical Care Medicine
PROC: 5A1D70Z Performance of Urinary Filtration, Intermittent, Less than 6 Hours Per Day (ICD-10-PCS; principal; 2020-08-31)
DX: E10.10 Type 1 diabetes mellitus with ketoacidosis without coma (principal); E10.22 Type 1 diabetes mellitus with diabetic chronic kidney disease; N18.6 End stage renal disease; F12.90 Cannabis use, unspecified, uncomplicated; F25.9 Schizoaffective disorder, unspecified; B19.20 Unspecified viral hepatitis C without hepatic coma; F32.9 Major depressive disorder, single episode, unspecified; F41.9 Anxiety disorder, unspecified; M48.54XA Collapsed vertebra, not elsewhere classified, thoracic region, initial encounter for fracture; M48.56XA Collapsed vertebra, not elsewhere classified, lumbar region, initial encounter for fracture; M54.9 Dorsalgia, unspecified; G89.4 Chronic pain syndrome; K76.9 Liver disease, unspecified; Z87.11 Personal history of peptic ulcer disease; Z87.442 Personal history of urinary calculi; Z99.2 Dependence on renal dialysis; Z79.899 Other long term (current) drug therapy; Z76.5 Malingerer [conscious simulation]
CPT/HCPCS: 36415; 36600; 71045; 74176; 76937; 80048; 80053; 81001; 82803; 82948; 83036; 83690; 83735; 84100; 84145; 85018; 85025; 87081; 96374; 99285; G0378; J0360; J0780; J1815; J2060; J2270; J2405; J3010; J3480; J7030; J8597